=== PATIENT | female | born 1965 | race Caucasian/White ===

== ENCOUNTER 2020-07-22 08:53 | Emergency (ER) | payer OTHER ==
[2020-07-22] MEDS ORDERED: MEDROL DOSEPAK 24 MG PO (11:22)
[2020-07-22] MEDS ORDERED: CYCLOBENZAPRINE10 MG PO (11:22)
== END 2020-07-22 11:52 | disposition home or self-care (01) ==
LOC: ER1 08:53
DX: M51.36 Other intervertebral disc degeneration, lumbar region (principal); F17.200 Nicotine dependence, unspecified, uncomplicated
CPT/HCPCS: 72131; 96372; 99283; J1100; J1885

== ENCOUNTER 2020-08-03 04:55 | Emergency (ER) | payer OTHER ==
[~2020-08-03 04:55] MED LIST: CYCLOBENZAPRINE10 MG PO; MEDROL DOSEPAK 24 MG PO
[2020-08-03] MEDS ORDERED: TORADOL 10 MG T10 MG PO (06:08)
[2020-08-03] MEDS ORDERED: ULTRAM50 MG PO (06:08)
== END 2020-08-03 06:53 | disposition home or self-care (01) ==
LOC: ER1 04:55
DX: M79.18 Myalgia, other site (principal); F17.210 Nicotine dependence, cigarettes, uncomplicated
CPT/HCPCS: 96372; 99283; J1885; J2270; J2550